=== PATIENT | female | born 1975 | race Caucasian/White ===

== ENCOUNTER → 2017-10-19 15:49 | Outpatient (CLI) | payer OTHER, SELFPAY ==
[2017-10-23 12:59] LABS: HPV APTIMA, High Risk Negative (Negative)
== END ==
PROVIDERS: Visit Provider Obstetrics & Gynecology
DX: Z12.4 Encounter for screening for malignant neoplasm of cervix (principal)
CPT/HCPCS: 88175; G0145

== ENCOUNTER → 2018-08-10 10:08 | Outpatient (CLI) | payer OTHER, SELFPAY ==
[2018-05-17 10:58] VITALS: BMI 26.7
[2018-08-10 10:42] LABS: Follicle Stimulating Hormone 2.4 mIU/mL
== END ==
PROVIDERS: Nurse Practitioner Women's Health; Family Provider Student in an Organized Health Care Education/Training Program; PCP Student in an Organized Health Care Education/Training Program; Referring Provider Obstetrics & Gynecology; Visit Provider Obstetrics & Gynecology
DX: N91.2 Amenorrhea, unspecified (principal)
CPT/HCPCS: 36415; 83001

== ENCOUNTER → 2019-10-03 08:26 | Outpatient (CLI) | payer OTHER, SELFPAY ==
[2018-05-17 10:58] VITALS: BMI 26.7
--- NOTE | 2019-10-03 08:26 | US_ITS ---
STUDY: ULTRASOUND OF THE FEMALE PELVIS - COMPLETE REASON FOR EXAM: Female, 44 years old. Pain LMP: 09/30/2019. TECHNIQUE: Transabdominal and Transvaginal TECHNICAL QUALITY: Adequate. COMPARISON: None. FINDINGS: The uterus is anteverted and is in a midline position. The uterus is enlarged and measures 12.2 cm x 7.6 x 6.3 cm. There is a Nabothian cyst of the cervix. The endometrium measures 4.8 mm in thickness, and is . There is no demonstrated endometrial mass. There is heterogeneous appearance of the uterus without a focal uterine fibroid. I.U.D. - The patient does not have an I.U.D. The right ovary is visualized. The right ovary measures 3.2 cm x 3.8 cm x 1.5 cm. There is no right ovarian cyst or ovarian mass. There is no visualized right adnexal mass or complex lesion. There is normal arterial and normal venous vascularity. The left ovary is visualized. The left ovary measures 4.3 cm x 2.8 cm x 2.1 cm. There is no left ovarian cyst or ovarian mass. There is no visualized left adnexal mass or complex lesion. There is normal arterial and normal venous vascularity. There is no fluid in the cul-de-sac. The pre void volume of the bladder was 395 ml. Polycystic ovary disease: No. US/Pelvic (Non ) IMPRESSION: Enlarged uterus with heterogeneous appearance of the myometrium although no focal fibroid is seen. Electronically Signed: Tadeo Franco, at 15:20 EDT , Service support ,
--- NOTE | 2019-10-03 08:26 | US_ITS ---
STUDY: ULTRASOUND OF THE FEMALE PELVIS - COMPLETE REASON FOR EXAM: Female, 44 years old. Pain LMP: 09/30/2019. TECHNIQUE: Transabdominal and Transvaginal TECHNICAL QUALITY: Adequate. COMPARISON: None. FINDINGS: The uterus is anteverted and is in a midline position. The uterus is enlarged and measures 12.2 cm x 7.6 x 6.3 cm. There is a Nabothian cyst of the cervix. The endometrium measures 4.8 mm in thickness, and is . There is no demonstrated endometrial mass. There is heterogeneous appearance of the uterus without a focal uterine fibroid. I.U.D. - The patient does not have an I.U.D. The right ovary is visualized. The right ovary measures 3.2 cm x 3.8 cm x 1.5 cm. There is no right ovarian cyst or ovarian mass. There is no visualized right adnexal mass or complex lesion. There is normal arterial and normal venous vascularity. The left ovary is visualized. The left ovary measures 4.3 cm x 2.8 cm x 2.1 cm. There is no left ovarian cyst or ovarian mass. There is no visualized left adnexal mass or complex lesion. There is normal arterial and normal venous vascularity. There is no fluid in the cul-de-sac. The pre void volume of the bladder was 395 ml. Polycystic ovary disease: No. US/Transvaginal Non- IMPRESSION: Enlarged uterus with heterogeneous appearance of the myometrium although no focal fibroid is seen. Electronically Signed: Tadeo Franco, at 15:20 EDT , Service support ,
== END ==
PROVIDERS: PCP Student in an Organized Health Care Education/Training Program; Referring Provider Obstetrics & Gynecology; Visit Provider Obstetrics & Gynecology
DX: R10.2 Pelvic and perineal pain (principal)
CPT/HCPCS: 76830; 76856; 93976

== ENCOUNTER → 2019-10-19 12:23 | Outpatient (CLI) | payer OTHER, SELFPAY ==
[2018-05-17 10:58] VITALS: BMI 26.7
--- NOTE | 2019-10-19 12:23 | BI_ITS ---
MAMMOGRAPHY - BILATERAL SCREENING REASON FOR EXAM: Female, 44 years old. Routine annual screening examination. PERTINENT HISTORY: Non-contributory. TECHNIQUE: Digital bilateral breast kurt (3D mammographic acquisition) in the CC and MLO projections. 2-D mediolateral oblique (MLO) and craniocaudad (CC) views of both breasts were obtained. CAD: Full Field Digital Mammography with Computer Added Detection was performed. COMPARISON: None. Baseline examination. FINDINGS: Breast Composition: The breasts are heterogeneously dense, which may obscure small masses. There are no dominant masses or suspicious calcifications. No other significant abnormalities are identified. BI/SCREEN MAMM (CAD) W/KURT BILAT IMPRESSION: Negative screening mammogram. Yearly followup mammogram recommended. (A) ASSESSMENT CATEGORY: BIRADS Category 1: Negative. A letter regarding these results will be sent to the patient by the facility within 30 days. Approximately 10% of breast cancers are not detected by mammography. A normal mammogram should not delay biopsy of a clinically suspicious abnormality. [id number] Electronically Signed: Tadeo Franco, at 13:36 EDT , Service support ,
== END ==
PROVIDERS: PCP Student in an Organized Health Care Education/Training Program; Referring Provider Obstetrics & Gynecology; Visit Provider Obstetrics & Gynecology
DX: Z12.31 Encounter for screening mammogram for malignant neoplasm of breast (principal)
CPT/HCPCS: 77063; 77067

== ENCOUNTER → 2019-11-17 | Outpatient (CLI) | payer OTHER, SELFPAY ==
[2019-11-17 13:59] VITALS: BMI 27.6
== END | disposition home or self-care (01) ==
LOC: LABSPEC 11-21 12:29
PROVIDERS: PCP Student in an Organized Health Care Education/Training Program; Visit Provider Obstetrics & Gynecology
DX: N93.9 Abnormal uterine and vaginal bleeding, unspecified (principal)

== ENCOUNTER → 2019-11-17 | Outpatient (CLI) | payer OTHER, SELFPAY ==
--- NOTE | 2019-11-17 | EMB_PTH ---
PATIENT: CYNTHIA DAVENPORT LOC: [facility] U#:[id number] AGE/SX: 44/F ROOM: RE11/17/[address]: Dr. Coby Jaramillo MD : 1975 BED: DIS: 11/17/2019 SPEC #: [id number] RECD: 11/17/19 16:15 STATUS: DOUGLAS VALE #: [id number] BRIGETTE: 11/17/19 00:[address]: Coby Jaramillo DEPT: SURGICAL PATHOLOGY RECD BY: Michelet Garcia ENTERED: 11/21/19 10:59 SP TYPE: ENDOM BX/C ELYSE DR: Dr. Con Rose DO Tissues: Endometrium, NOS Procedures: Surgery Specimen Level IV HEADER OPERATION: Endometrial biopsy PRE-OP DIAGNOSIS: Abnormal uterine bleeding TISSUE SUBMITTED: Endometrial biopsy MICROSCOPIC DIAGNOSIS Endometrial biopsy: Secretory endometrium. Fragments of benign endocervical mucosa. SJ:philomena 11/21/19 MICROSCOPIC DESCRIPTION Slides are reviewed. GROSS DESCRIPTION Received is one container labeled with the patient's name and not further designated. The specimen consists of multiple irregular fragments of navarro-pink soft tissue that in aggregate measure 3 x 2.5 x 0.2 cm. The specimen is totally submitted in one cassette. / SJ:philomena 11/18/19 TC:4 CPT: 27056
[2019-11-17 13:59] VITALS: BMI 27.6
== END | disposition home or self-care (01) ==
LOC: LABSPEC 11-21 09:44
PROVIDERS: PCP Student in an Organized Health Care Education/Training Program; Referring Provider Obstetrics & Gynecology; Visit Provider Obstetrics & Gynecology
DX: N93.9 Abnormal uterine and vaginal bleeding, unspecified (principal)
CPT/HCPCS: 88305

== ENCOUNTER → 2020-01-09 10:00 | Outpatient (CLI) | payer OTHER, SELFPAY ==
[2018-05-17 10:58] VITALS: BMI 26.7
[2020-01-13 10:52] LABS: Hematocrit 40.4 % (37-47); Mean Corp Hgb Conc 32.2 g/dL (32-36); Mean Corpuscular Hgb 30.2 pg (27.0-32.0); Mean Corpuscular Volume 93.7 fL (81-99); Mean Platelet Vol. 10.3 fl (6.2-12.0); Platelet Count 246 K/mm3 (150-450); RBC Distribution Width CV 13.1 % (11.6-14.6); RBC Distribution Width SD 44.8 fl (35.1-43.9); Red Blood Count 4.31 M/mm3 (4.2-5.4); White Blood Count 5.9 K/mm3 (4.4-11.0)
== END ==
PROVIDERS: PCP Student in an Organized Health Care Education/Training Program; Referring Provider Obstetrics & Gynecology; Visit Provider Obstetrics & Gynecology
DX: Z20.828 Contact with and (suspected) exposure to other viral communicable diseases (principal); Z01.812 Encounter for preprocedural laboratory examination
CPT/HCPCS: 36415; 85027; 86850; 86900; 86901; 87426; C9803

== ENCOUNTER 2020-05-15 12:48 | Observation (INO) | payer OTHER, SELFPAY ==
[2020-01-02 13:49] VITALS: BMI 28.1
[2020-05-01 15:20] VITALS: BMI 27.6
[2020-05-09 16:50] LABS: Hematocrit 36.7 % (37-47); Hemoglobin 11.5 g/dL (12.0-15.0); Mean Corp Hgb Conc 31.3 g/dL (32-36); Mean Corpuscular Hgb 29.5 pg (27.0-32.0); Mean Corpuscular Volume 94.1 fL (81-99); Mean Platelet Vol. 10.4 fl (6.2-12.0); Platelet Count 227 K/mm3 (150-450); RBC Distribution Width CV 12.8 % (11.6-14.6); RBC Distribution Width SD 44.2 fl (35.1-43.9); White Blood Count 6.1 K/mm3 (4.4-11.0)
[2020-05-09 17:08] LABS: Internal QC Validated? YES +Cl - CLEAR BKGD; Pregnancy, Urine Negative Negative
[2020-05-09 17:21] LABS: Magnesium 2.3 mg/dL (1.6-2.6)
[2020-05-15] VITALS (14 sets, daily range): BP systolic 82–108; BP diastolic 54–72; PULSE 49–80; RESP 14–18; TEMP 36.5–37.3; O2SAT 96–100; BMI 26.9
[2020-05-15] MEDS: Acetaminophen 500 MG Tablet 1000 MG PO ×3 (07:08→18:48)
[2020-05-15] MEDS: Enoxaparin 40 MG/0.4 ML Syringe SC (07:08)
[2020-05-15] MEDS: Gabapentin 600 MG Tablet PO (07:08)
[2020-05-15 07:11] LABS: Bedside Glucose 72 mg/dL (70-110)
[2020-05-15] MEDS: Scopolamine 1mg/72hr Patch 1 PATCH TD (07:12)
[2020-05-15 07:13] LABS: Internal QC Validated? YES +Cl - CLEAR BKGD; Pregnancy, Urine Negative Negative
[2020-05-15] MEDS: Phenazopyridine 95 MG Tablet 190 MG PO (07:17)
[2020-05-15] MEDS: Celecoxib 200 MG Capsule 400 MG PO (07:18)
[2020-05-15] MEDS: Lactated Ringers 1,000 ML 40 ML IV (07:21)
[2020-05-15] MEDS: dexAMETHasone 10 MG/ML Vial 8 MG IV (07:21)
[2020-05-15] MEDS: Ondansetron 4 MG/2 ML Vial IV (08:15)
--- NOTE | 2020-05-15 08:15 | HYST_PTH ---
PATIENT: CYNTHIA DAVENPORT LOC: [facility] U#:[id number] AGE/SX: 45/F ROOM: SD317 RE05/15/[address]: Dr. Coby Jaramillo MD : 1975 BED: 1 DIS: 05/16/2020 SPEC #: [id number] RECD: 05/15/20 12:42 STATUS: DOUGLAS COLLAZO #: [id number] BRIGETTE: 05/15/20 08:[address]: Coby Jaramillo DEPT: SURGICAL PATHOLOGY RECD BY: Christi Dominguez ENTERED: 05/15/20 13:07 SP TYPE: HYSTERECT OTHR DR: Dr. Con Rose DO Tissues: Uterus, NOS Procedures: Surgery Specimen Level V HEADER OPERATION: ERAS, vaginal hysterectomy, salpingectomy PRE-OP DIAGNOSIS: Adenomyosis of uterus; enlarged uterus; chronic pelvic pain TISSUE SUBMITTED: Uterus, cervix, bilateral fallopian tubes MICROSCOPIC DIAGNOSIS Uterus, hysterectomy: Cervix - minimal chronic inflammation. Endometrium - secretory endometrium. Myometrium - leiomyomas. Right and left fallopian tubes - no pathologic change. AM:philomena 05/16/2020 MICROSCOPIC DESCRIPTION Slides are reviewed. GROSS DESCRIPTION Received in fixative is one container labeled with the patient's name and designated uterus, cervix, bilateral fallopian tubes. The specimen consists of a hysterectomy specimen in multiple pieces consisting of uterus with cervix in multiple pieces and detached pieces of bilateral fallopian tubes. The uterus with cervix in multiple pieces weigh in aggregate 211 gm and measures in aggregate 15 x 15 x 5 cm. Two pieces consist of portion of uterus with cervix. The cervix measures 5 cm in length. The ecto- and endocervical mucosa is unremarkable. One of the pieces show portion of endometrial cavity. The endometrium appears navarro, glistening without any mass lesion and measures up to 0.3 cm in thickness. The largest area of endometrium measures 3 cm in greatest width. Sections of the uterine wall reveal three intramural nodular masses. The largest mass measures 0.7 cm in greatest dimension. Also present in the container are two detached bilateral fallopian tubes measuring 3.5 cm in length and 0.5 cm in diameter and 5 cm in length and 0.6 cm in diameter. The fimbrial end is identified. Sections reveal unremarkable cut surfaces. Clinical Research Associate sections are submitted in nine cassettes as follows: 1 & 2 - cervix, 3-6 - endomyometrium, 7 - nodular masses, 8 & 9 - bilateral fallopian tubes with each cassette containing one fallopian tube. / SJ:philomena 05/15/20 TC: 1 CPT: 95865
[2020-05-15] MEDS: Cefazolin 2 GM in 0.9% Normal Saline 100 ML IV (08:22)
--- NOTE | 2020-05-15 08:34 | HP.PCM_ITS ---
- Problem List (1) Adenomyosis of uterus Status: Acute Comment: Causing abnormal uterine bleeding, dysmenorrhea and chronic pelvic pain. Intolerance of hormones in past and patient is not a candidate for an ablation due to enlarged uterus and adenomyosis. Recommend proceeding with TVH BS. (2) Enlarged uterus Status: Acute Comment: 12 cm with significant findings of adenomyosis causing abnormal uterine bleeding and pelvic pain (3) Chronic pelvic pain in female Status: Chronic Comment: Dysmenorrhea and due to adenomyosis recommend proceeding with hysterectomy. History and Physical Date of Admission: 05/15/20 Intake Vital Signs 05/01/20 Height 5 ft 4 in 05/01/20 Weight: 161 lb 05/01/20 BMI 27.6 05/01/20 BP 103/75 Intake Visit Reasons: TVH BS Chief Complaint: pre op Railway Shunter Required: No Is patient in pain?: No Allergies No Known Allergies Allergy (Verified 05/01/20 15:20) Medications Multivitamin with Minerals [Multiple Vitamin] 1 ea PO DAILY 01/09/20 [History Confirmed 04/11/20] Is last menstrual period known: No Post menopausal: No Patient : No : No [facility] Medical History Back pain (Acute) Hay fever (Acute) Neck pain (Acute) Surgical History History of wisdom tooth extraction (Acute) Family History Grandmother Cancer cervical cancer Social History (Updated 05/03/20 @ 12:[address] 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 Pregancy History 4 Elective abortions Hx Para Spontaneous abortions Hx # Term Pregnancies Ectopic pregnancies Hx # Pregnancies Multiple births # of living children Past Pregnancies Del. Date Name GA/Weeks Outcome Route Bth Weight Gen Labor Lgth Anesthesia Del Locatn Provider FOB Unknown 2007 Prachi live - full term Unknown 2009 Jayne live - full term Dr. Carmen Rodríguez Unknown 2011 Christie live - full term Indra ROS Const Constitutional: Denies fatigue, fever(s), headache(s), increased appetite, poor appetite, weight gain or weight loss Eyes Eyes: Reports system reviewed and no additional complaints, except as docu ENT ENT: Reports system reviewed and no additional complaints, except as docu Cardio Card: Reports system reviewed and no additional complaints, except as docu Resp Resp: Reports system reviewed and no additional complaints, except as docu GI GI: Reports as per HPI; denies abdominal pain, constipation, nausea or vomiting : Denies nipple discharge Musc Musc: Reports system reviewed and no additional complaints, except as docu Skin Skin/Breast: Reports system reviewed and no additional complaints, except as docu; denies nipple discharge Neuro Neuro: Reports system reviewed and no additional complaints, except as docu Psych Psych: Reports system reviewed and no additional complaints, except as docu Exam Const General: cooperative, healthy appearing, comfortable, well developed Orientation: alert HENMT Head: normal to inspection Eyes General: appearance normal, both eyes and all related structures Neck Neck: normal visual inspection, no lymphadenopathy Neck mass: No Thyroid: thyroid normal Chest Chest palpation & inspection: normal inspection of the chest Resp Effort & Inspection: normal respiratory effort Cardio Rate: regular rate GI Inspection: normal to inspection, non-distended Palpation: soft, no hepatosplenomegaly, no guarding, nontender External Female Exam: normal external appearance, normal appearance of the urethra Urethra: normal appearance of the urethra Speculum Exam - Vagina: normal appearance of the vagina, normal vaginal discharge, no lesions Speculum Exam - Cervix: normal appearance of the cervix, nontender Bimanual Exam- Vagina & Uterus: No cervical tenderness, uterine mobility normal, consistency abnormal (Dense, muscular), uterus enlarged (12-week size) Bimanual Exam- Adnexa, other: normal adnexae, no adnexal masses Musc Thoracic/Lumbar Spine: thoracic and lumbar spine normal to inspection Skin General: no rashes or lesions noted Neuro General: alert, awake Speech: speech normal Extrem General: normal to inspection Psych Appearance: grossly normal Assessment & Plan Problems 1. Adenomyosis of uterus N80.0 Causing abnormal uterine bleeding, dysmenorrhea and chronic pelvic pain. Intolerance of hormones in past and patient is not a candidate for an ablation due to enlarged uterus and adenomyosis. Recommend proceeding with TVH BS. 2. Enlarged uterus N85.2 12 cm with significant findings of adenomyosis causing abnormal uterine bleeding and pelvic pain 3. Chronic pelvic pain in female R10.2; G89.29 Dysmenorrhea and due to adenomyosis recommend proceeding with hys terectomy. Plan After discussing the patient's diagnosis and treatment plan options, patient wishes to proceed with surgical management. I have discussed with the patient t he risks, benefits, and alternatives of the procedure which include but are not limited to risks of anesthesia, bleeding, infection, possible damage to bowel, bladder, or surrounding vasculature which could lead to additional surgery to evaluate any complications. Patient agrees to procedure and wishes to proceed. ACOG/uptodate references given for additional information regarding procedure. Plan Detail Goals Decreased pain Decreased spasm Improve ROM Barriers Possible scoliosis Coding Level of Care Code No Charge Diagnoses Adenomyosis of uterus N80.0 Enlarged uterus N85.2 Chronic pelvic pain in female R10.2; G89.29 UPDATE- I have seen the patient and performed any clinically relevant updates to the history and physical exam. Coby Jaramillo MD
[2020-05-15] MEDS: Vasopressin 20 UNITS/ML Vial (08:48)
[2020-05-15] MEDS: Lactated Ringers 1,000 ML 70 ML IV ×3 (10:21→13:24)
--- NOTE | 2020-05-15 10:55 | DCINST_ITS ---
Discharge Diet: No Restrictions Discharge Activity: Return to Normal Activity, May Not Drive, May Shower May resume sexual activity in: 6-8 weeks Call your doctor if your incision/area has: Continuous Slow Oozing, Sudden Increased Bleeding, Increased Pain/ Swelling, Increased Redness, Foul Smelling Discharge Call your doctor if you observe: Fever of 101 or Higher, Inability to urinate, Inability to have a bowel movement, Using more than one pad per hour Allergies/Adverse Reactions: Allergies No Known Allergies Allergy (Verified 05/15/20 06:43) Medications to take at Discharge Multivitamin with Minerals [Multiple Vitamin] 1 ea PO DAILY 01/09/20 Naproxen [Naprosyn] 250 - 500 mg PO Q8H PRN PRN #30 tab 05/15/20 Oxycodone HCl/Acetaminophen [Percocet 5-325] 1 - 2 tablet PO Q6H PRN PRN 7 Days #15 tablet 05/15/20 The following prescriptions were given: Naproxen [Naprosyn] 250 - 500 mg PO Q8H PRN PRN #30 tab PRN Reason: MILD PAIN Transmission Status: Pending to [facility] Oxycodone HCl/Acetaminophen [Percocet 5-325] 1 - 2 tablet PO Q6H PRN PRN 7 Days #15 tablet PRN Reason: Pain Transmission Status: Sent to [facility] Primary Care Physician: Con Rose DO [Primary Care Provider] - Test Results: Test results from this visit will be discussed in further detail at your follow- up appointment, if applicable. Please Follow Up With: Coby Jaramillo MD - [phone]
[2020-05-15] MEDS: Ketorolac 30 MG/ML Syringe IV ×2 (13:22→18:48)
[2020-05-15] MEDS: 0.9% Saline Lock 10 ML Syringe IV (13:24)
[2020-05-15] MEDS: Ondansetron ODT 4 MG Tablet PO (14:22)
[2020-05-15 15:34] LABS: Hematocrit 37.4 % (37-47); Hemoglobin 12.2 g/dL (12.0-15.0); Mean Corp Hgb Conc 32.6 g/dL (32-36); Mean Corpuscular Hgb 30.1 pg (27.0-32.0); Mean Corpuscular Volume 92.3 fL (81-99); Platelet Count 244 K/mm3 (150-450); RBC Distribution Width CV 12.8 % (11.6-14.6); RBC Distribution Width SD 43.4 fl (35.1-43.9); Red Blood Count 4.05 M/mm3 (4.2-5.4)
[2020-05-15] MEDS: oxyCODONE 5 MG Tablet PO (16:42)
--- NOTE | 2020-05-15 19:16 | OP.PCM_ITS ---
Problem List (1) Adenomyosis of uterus Status: Acute Comment: Causing abnormal uterine bleeding, dysmenorrhea and chronic pelvic pain. Intolerance of hormones in past and patient is not a candidate for an ablation due to enlarged uterus and adenomyosis. Recommend proceeding with TVH BS. (2) Enlarged uterus Status: Acute Comment: 12 cm with significant findings of adenomyosis causing abnormal uterine bleeding and pelvic pain (3) Chronic pelvic pain in female Status: Chronic Comment: Dysmenorrhea and due to adenomyosis recommend proceeding with hysterectomy. Report of Operation Date of Procedure: 05/15/20 Pre-Operative Diagnosis: aub pelvic congestion Post-Operative Diagnosis: same Surgery/Procedure Performed:: tvh bs Description of Surgical Findings:: enlarged uterus, increased vasculature soldering technician: Rosalba Diaz Type of Anesthesia:: General Special Medications: none Specimen's removed: uterus tubes Drains: cassidy Estimated Blood Loss (mL): 50 Fluids Replaced: crystalloid Description of Procedure: Patient was taken to the operating room and was placed under general anesthesia was prepped and draped in normal sterile fashion in the dorsal lithotomy position. Preoperative antibiotics and SCDs and Cassidy catheter was placed inside the bladder. Weighted speculum was placed in the vagina and the anterior and posterior lip of the cervix was grasped with 2 Ciaran clamps and circumferentially injected with dilute vasopressin. A circumferential incision was made with a scalpel and the posterior cul-de-sac was entered into sharply and a longneck speculum was placed. The anterior cul-de-sac was also dissected down and entered into sharply and the uterosacral ligaments were clamped cut and suture ligated bilaterally followed by the cardinal ligaments which were Clamped cut and suture ligated bilaterally with 0 Monocryl. The uterus serially descended and progressive bites were taken bilaterally. Morcellation was utilized to debulk the uterus to increase visibility up to the level of the cloverdale ro-ovarian ligament bilaterally which was clamped transected and double ligated with 0 Monocryl suture and 0 Vicryl free tie. Bilateral fallopian tubes and ovaries were well visualized and noted be within normal limits and the bilateral fallopian tubes were transected across the base with a Marisol clamp and removed and sutured with 0 Vicryl suture. Excellent hemostasis was noted. Posterior peritoneum was reapproximated with 2-0 Vicryl and a modified Young stitch was placed through the posterior vaginal cuff and bilateral uterosacral ligaments across the posterior cul-de-sac skimming along to provide apical support to the vagina. The vagina was closed with [id number] 0 Vicryl pop offs including the posterior and anterior peritoneum in the reapproximation. Excellent hemostasis was noted. All instruments removed from the vagina clear urine was noted at the end of the procedure and patient was awoken and taken recovery in stable condition. Grafts/Implants Used: none - Complications none - Admit VTE Documentation VTE Present on Admission: No VTE Mechan Device Prophylaxis: SCD's Multi Select Codes - Urinary/Genital Urinary/Genital CPT Codes: 00852 TVH+BS/O <250gr uterus
[2020-05-15] MEDS: Docusate Sodium 100 MG Capsule PO (21:35)
[2020-05-16 00:26] VITALS: BP 119/73; PULSE 65; RESP 16; TEMP 37.1; O2SAT 97
[2020-05-16] MEDS: Acetaminophen 500 MG Tablet 1000 MG PO ×2 (00:30→07:26)
[2020-05-16] MEDS: Ketorolac 30 MG/ML Syringe IV ×2 (00:31→05:12)
[2020-05-16] MEDS: 0.9% Saline Lock 10 ML Syringe IV ×2 (00:32→05:13)
[2020-05-16] MEDS: Lactated Ringers 1,000 ML 70 ML IV (00:35)
[2020-05-16 05:18] VITALS: BP 97/66; PULSE 57; RESP 16; TEMP 36.8; O2SAT 98
[2020-05-16 07:30] VITALS: BP 92/65; PULSE 64; RESP 16; TEMP 36.7; O2SAT 98
[2020-05-16] MEDS: Enoxaparin 40 MG/0.4 ML Syringe SC (07:50)
[2020-05-16] MEDS: Docusate Sodium 100 MG Capsule PO (07:50)
[2020-05-16 07:57] VITALS: O2SAT 98
--- NOTE | 2020-05-16 08:02 | PN.OBGYN_ITS ---
Patient Problems: Active and Suspected Problems (Last Reviewed 05/01/20 @ 15:21 by Rose Mary Lorenzana) Enlarged uterus (Acute) 12 cm with significant findings of adenomyosis causing abnormal uterine bleeding and pelvic pain Adenomyosis of uterus (Acute) Causing abnormal uterine bleeding, dysmenorrhea and chronic pelvic pain. Intolerance of hormones in past and patient is not a candidate for an ablation due to enlarged uterus and adenomyosis. Recommend proceeding with TVH BS. Subjective: patient recovering well, denies CP, SOB, N, or V. patient is ambulating, voiding ,tolerating adequate po, and pain is controlled with oral medications. - Physical Exam Vitals/I&O's: Vital Signs Temp Pulse Resp BP Pulse Ox 98.0 F 64 16 92/65 98 05/16/20 07:30 05/16/20 07:30 05/16/20 07:30 05/16/20 07:30 05/16/20 07:57 Oxygen Flow Rate (L/min) 6 Oxygen Delivery Method Room Air Weight: 156 lb 15.506 oz Body Mass Index (BMI) 26.9 Intake and Output for Last 24 Hours 05/14/20 05/15/20 05/16/20 23:59 23:59 23:59 Intake Total 5931.83 / 5931.83 1710.66 / 1710.66 Output Total 3100 / 3100 300 / 300 Balance 2831.83 / 2831.83 1410.66 / 1410.66 General: Alert, Oriented x3 Microbiology Past 72 Hours 05/14/20 08:25 Interface Orders SARS-CoV-2 Antigen (Rapid) - Final Laboratory Results 05/15/20 15:15: WBC 15.0 H, RBC 4.05 L, Hgb 12.2, Hct 37.4, MCV 92.3, MCH 30.1, MCHC 32.6, RDW Std Deviation 43.4, RDW Coeff of Charity 12.8, Plt Count 244, MPV 10.0 Current Medications Acetaminophen (Acetaminophen 500 Mg Tablet) 1,000 mg PO Q6 [facility] Last Admin: 05/16/20 07:26 Dose: 1,000 mg Documented by: Docusate Sodium (Docusate Sodium 100 Mg Capsule) 100 mg PO BID [facility] Last Admin: 05/16/20 07:50 Dose: 100 mg Documented by: Enoxaparin Sodium (Enoxaparin 40 Mg/0.4 Ml Syringe) 40 mg SC DAILY [facility] Last Admin: 05/16/20 07:50 Dose: 40 mg Documented by: Insulin Human Lispro (Insulin Lispro 100 Unit/Ml Insuln.Pen) 0 unit SC Q4H PRN PRN; Protocol PRN Reason: BG >/= 180, SEE PROTOCOL Ketorolac Tromethamine (Ketorolac 30 Mg/Ml Syringe) 30 mg IV Q6 [facility] Stop: 05/16/20 18:01 Last Admin: 05/16/20 05:12 Dose: 30 mg Documented by: Magnesium Chloride (Magnesium Chloride 64 Mg Delay Rel.Tablet) 128 mg PO DAILY PRN PRN PRN Reason: Constipation Nutritional Formula (Lactose Free) (Ensure Enlive 120 Ml Liquid) 120 ml PO TIDCM [facility] Last Admin: 05/16/20 07:46 Dose: Not Given Documented by: Ondansetron HCl (Ondansetron Odt 4 Mg Tablet) 4 mg PO Q6H PRN PRN PRN Reason: NAUSEA Last Admin: 05/15/20 14:22 Dose: 4 mg Documented by: Oxycodone HCl (Oxycodone 5 Mg Tablet) 5 - 10 mg PO Q4H PRN PRN PRN Reason: Pain Score 4-10 Last Admin: 05/15/20 16:42 Dose: 5 mg Documented by: Sodium Chloride (0.9% Saline Lock 10 Ml Syringe) 10 - 40 ml IV UD PRN PRN Reason: SALINE FLUSH Last Admin: 05/16/20 05:13 Dose: 10 ml Documented by: Medical Necessity - Tobacco Use Smoking Status: Never smoker Tobacco Use: Non-smoker Assessment/Plan All Active Problems (Last Reviewed 05/01/20 @ 15:21 by Ros eMary Lorenzana) Scoliosis (Acute) Segmental and somatic dysfunction of pelvic region (Acute) Segmental and somatic dysfunction of thoracic region (Acute) Segmental and somatic dysfunction of lumbar region (Acute) Segmental and somatic dysfunction of cervical region (Acute) Enlarged uterus (Acute) Adenomyosis of uterus (Acute) Influenza B (Resolved) patient is s/p tvhbs POD 1 1. routine ERAS protocol postop care- increase ambulation, encourage oral intake and oral control of pain. lovenox and scds for dvt prophylaxis, patient stable for discharge to home.
== END 2020-05-16 10:50 | disposition home or self-care (01) ==
LOC: MS3 12:50 → SDC 15:27 → MS3 15:27
PROVIDERS: Anesthesiology; Admitting Provider Obstetrics & Gynecology; PCP Student in an Organized Health Care Education/Training Program; Referring Provider Obstetrics & Gynecology; Visit Provider Obstetrics & Gynecology
PROC: (CPT 58260; principal; 2020-05-15 07:55)
DX: D25.1 Intramural leiomyoma of uterus (principal); Z20.828 Contact with and (suspected) exposure to other viral communicable diseases; N80.0 Endometriosis of uterus; M99.02 Segmental and somatic dysfunction of thoracic region; M99.05 Segmental and somatic dysfunction of pelvic region; M99.03 Segmental and somatic dysfunction of lumbar region; M99.01 Segmental and somatic dysfunction of cervical region; M41.9 Scoliosis, unspecified
CPT/HCPCS: 00940; 58262; 36415; 81025; 82962; 83735; 85027; 86850; 86900; 86901; 87426; 88307; 96372; 96374; 96376; 99218; C9803; J7120; A4216; G0378; G0379; J2405

== ENCOUNTER 2021-02-27 15:06 | Outpatient (CLI) | payer OTHER, SELFPAY | END 2021-02-27 23:59 | disposition short-term general hospital (02) | LOC: LABSPEC 15:08 | PROVIDERS: PCP Student in an Organized Health Care Education/Training Program; Visit Provider Otolaryngology | DX: J02.9 Acute pharyngitis, unspecified (principal) | CPT/HCPCS: 87070 ==

== ENCOUNTER → 2023-07-15 | Outpatient (CLI) | payer OTHER, SELFPAY | END | disposition home or self-care (01) | PROVIDERS: PCP Student in an Organized Health Care Education/Training Program; Referring Provider Chiropractor; Visit Provider Chiropractor | DX: M99.03 Segmental and somatic dysfunction of lumbar region (principal); M99.05 Segmental and somatic dysfunction of pelvic region; M54.9 Dorsalgia, unspecified | CPT/HCPCS: 72110 ==